=== PATIENT | male | born 2000 | race Asian ===

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

== ENCOUNTER → 2021-05-29 | Outpatient (CLI) | payer BC, OTHER ==
[2021-05-29 14:17] LABS: HGB 16.6 g/dL (13.0-17.0); MCH 31.1 pg (27.0-32.0); MCHC 32.5 g/dL (32.0-37.0); MCV 95.5 fL (80.0-97.0); Mean Platelet Volume 10.7 fL (9.5-12.2); Platelet Count 231 X 10*3/uL (140-440); RBC 5.34 X 10*6/uL (4.40-5.60); RDW 12.3 % (11.5-14.5); WBC 8.95 X 10*3/uL (4.50-10.00)
[2021-05-29 15:52] LABS: Follicle Stimulating Hormone 3.4 mIU/mL; Luteinizing Hormone 4.8 mIU/mL; Prolactin 10.6 ng/mL (2.100-17.700); T4, Free (Free Thyroxine) 1.08 ng/dL (0.830-1.430)
[2021-05-29 16:02] LABS: Thyroid Peroxidase Antibodies <9.0 U/mL (0.0-33.0)
== END | disposition home or self-care (01) ==
LOC: LABWHC1 10:13
PROVIDERS: ATTEND Internal Medicine Endocrinology, Diabetes & Metabolism
DX: Q89.2 Congenital malformations of other endocrine glands (principal)
CPT/HCPCS: 36415; 82024; 82533; 83001; 83002; 84146; 84305; 84403; 84439; 84443; 84480; 85027; 86376

== ENCOUNTER → 2021-11-08 | Outpatient (CLI) | payer BC, OTHER ==
[2021-11-08 23:29] LABS: T4, Free (Free Thyroxine) 0.87 ng/dL (0.830-1.430)
== END | disposition home or self-care (01) ==
LOC: LABWHC1 09:41
PROVIDERS: ATTEND Internal Medicine Endocrinology, Diabetes & Metabolism
DX: Q89.2 Congenital malformations of other endocrine glands (principal)
CPT/HCPCS: 36415; 84439; 84443; 84480

== ENCOUNTER 2023-06-19 19:06 | Emergency (ER) | payer BC, OTHER ==
--- NOTE | 2023-06-19 20:34 | ED ---
General Adult HPI - General Source: RN notes reviewed <Katalina Rivero - Last Filed: 06/19/23 20:33> <Tim Suh - Last Filed: 06/20/23 02:09> - General Stated complaint: Fever Time Seen by Provider: 06/19/23 20:33 - History of Present Illness Initial comments: 22-year-old male presents the emergency department with a chief complaint of fever. She reports fever on and off for the last day and half. Mother and father been giving Tylenol and Motrin at home. (Katalina Rivero) 22-year-old male presenting with chief complaint of fever. Mother reports a fever that started yesterday. They have been alternating Motrin and Tylenol. Patient denies any other symptoms. No headache, neck pain, ear pain, sinus pressure, cough, sore throat, congestion, shortness of breath, chest pain, abdominal pain, nausea, vomiting, diarrhea. (Tim Suh) - Related Data Allergies Allergy/AdvReac Type Severity Reaction Status Date / Time amoxicillin Allergy Unknown Verified 06/19/23 20:29 Review of Systems ROS Other: All systems not noted in ROS Statement are negative. <Katalina Rivero - Last Filed: 06/19/23 20:33> ROS Other: All systems not noted in ROS Statement are negative. <Tim Suh - Last Filed: 06/20/23 02:09> ROS Statement: Those systems with pertinent positive or pertinent negative responses have been documented in the HPI. General Exam <Katalina Rivero - Last Filed: 06/19/23 20:33> Limitations: no limitations General appearance: alert, in no apparent distress Head exam: Present: atraumatic, normocephalic Eye exam: Present: normal appearance ENT exam: Present: normal exam, normal oropharynx, mucous membranes moist Neck exam: Present: normal inspection. Absent: meningismus Respiratory exam: Present: normal lung sounds bilaterally. Absent: respiratory distress, wheezes, rales, rhonchi, stridor Cardiovascular Exam: Present: regular rate, normal rhythm, normal heart sounds. Absent: systolic murmur, diastolic murmur, rubs, gallop, clicks Neurological exam: Present: alert, oriented X3 Psychiatric exam: Present: normal affect, normal mood Skin exam: Present: warm, dry <Tim Suh - Last Filed: 06/20/23 02:09> - General Exam Comments Initial Comments: Visual Physical Exam Vital signs reviewed General: Well-appearing, nontoxic, no acute distress. Head: Normocephalic, atraumatic Eyes: PERRLA, EOMI ENT: Airway patent Chest: Nonlabored breathing Skin: No visual rash, normal skin tone Neuro: Alert and oriented 3 Musculoskeletal: No gross abnormalities (Katalina Rivero) Course Vital Signs 06/19/23 06/19/23 20:29 22:33 Temperature 99.1 F Pulse Rate 95 83 Respiratory 18 16 Rate Blood Pressure 111/75 116/75 O2 Sat by Pulse 98 97 Oximetry Medical Decision Making <Katalina Rivero - Last Filed: 06/19/23 20:33> <Tim Suh - Last Filed: 06/20/23 02:09> - Medical Decision Making I performed the quick note portion of this exam, verbal signature Katalina Rivero PA-C (Katalina Rivero) Was pt. sent in by a medical professional or institution ([facility], [facility], urgent care, hospital, or penitentiary...) When possible be specific @ -No Did you speak to anyone other than the patient for history (EMS, parent, family, police, friend...)? What history was obtained from this source @ -History supplemented by parents Did you review nursing and triage notes (agree or disagree)? Why? @ -I reviewed and agree with nursing and triage notes Were old charts reviewed (outside hosp., previous admission, EMS record, old EKG, old radiological studies, urgent care reports/EKG's, penitentiary records)? Report findings @ -No old charts were reviewed Differential Diagnosis (chest pain, altered mental status, abdominal pain women, abdominal pain men, vaginal bleeding, weakness, fever, dyspnea, syncope, headache, dizziness, GI bleed, back pain, seizure, CVA, palpatations, mental health, musculoskeletal)? @ - MDM Differential Fever: Pneumonia, viral URI, endocarditis, myocarditis, pericarditis, otitis, sinusitis, peritonsillar Abscess, retropharyngeal Abscess, epiglottitis, peritonitis, appendicitis, Ashley cystitis, diverticulitis, hepatitis, colitis, UTI, PID, TOA, pyelonephritis, prostatitis, epididymitis, meningitis, enc ephalitis, pulmonary embolism, CVA, thyroid storm, pancreatitis, adrenal crisis, cavernous sinus thrombosis this is not meant to be an all-inclusive list. EKG interpreted by me (3pts min.). @ -As above X-rays interpreted by me (1pt min.). @ -None done CT interpreted by me (1pt min.). @ -None done U/S interpreted by me (1pt. min.). @ -None done What testing was considered but not performed or refused? (CT, X-rays, U/S, labs )? Why? @ -None What meds were considered but not given or refused? Why? @ -None Did you discuss the management of the patient with other professionals (professionals i.e. , PA, [employer], lab, RT, psych nurse, high school social studies tutor, parking manager, teacher, first officer and flight instructor, bilingual case manager)? Give summary @ -No Was smoking cessation discussed for >3mins.? @ -No Was critical care preformed (if so, how long)? @ -No Were there social determinants of health that impacted care today? How? (Homelessness, low income, unemployed, alcoholism, drug addiction, transportation, low edu. Level, literacy, decrease access to med. care, care home, rehab)? @ -No Was there de-escalation of care discussed even if they declined (Discuss DNR or withdrawal of care, Hospice)? DNR status @ -No What co-morbidities impacted this encounter? (DM, HTN, Smoking, COPD, CAD, Cancer, CVA, ARF, Chemo, Hep., AIDS, mental health diagnosis, sleep apnea, morbid obesity)? @ -None Was patient admitted / discharged? Hospital course, mention meds given and route, prescriptions, significant lab abnormalities, going to OR and other pertinent info. @ -22-year-old male presenting with chief complaint of fever ongoing for the last and a half. Patient has no other symptoms. Heart and lungs are clear to auscultation, normal HEENT exam. No meningismus. He is negative for influenza, RSV, Covid, group A strep. Patient and parents are educated on today's findings and supportive management at home. Follow-up with PCP. Report back to ER with any new or worsening symptoms. Discussed return parameters and answered all questions. Patient conveyed verbal understanding and agreed to the plan. I discussed this case in detail with my attending Dr. Lutz Undiagnosed new problem with uncertain prognosis? @ -No Drug Therapy requiring intensive monitoring for toxicity (Heparin, Nitro, Insulin, Cardizem)? @ -No Were any procedures done? @ -No Diagnosis/symptom? @ -Fever Acute, or Chronic, or Acute on Chronic? @ -Acute Uncomplicated (without systemic symptoms) or Complicated (systemic symptoms)? @ -Uncomplicated Side effects of treatment? @ -No Exacerbation, Progression, or Severe Exacerbation? @ -No Poses a threat to life or bodily function? How? (Chest pain, USA, DC, pneumonia, PE, COPD, DKA, ARF, appy, cholecystitis, CVA, Diverticulitis, Homicidal, Suicidal, threat to staff... and all critical care pts) @ -Low likelihood (Tim Suh) - Lab Data Lab Results 06/19/23 06/19/23 Range/Units 20:37 20:37 Influenza Type A (PCR) Not Detected (Not Detectd) Influenza Type B (PCR) Not Detected (Not Detectd) RSV (PCR) Not Detected (Not Detectd) SARS-CoV-2 (PCR) Not Detected (Not Detectd) Group A Strep (PCR) NOT DETECTED (Not Detectd) Disposition <Katalina Rivero - Last Filed: 06/19/23 20:33> Is patient prescribed a controlled substance at d/c from ED?: No Time of Disposition: 22:18 <Tim Suh - Last Filed: 06/20/23 02:09> Clinical Impression: Fever Disposition: HOME SELF-CARE Condition: Good Instructions (If sedation given, give patient instructions): Fever in Adults (ED) Additional Instructions: Follow-up with PCP. Report back to ER with any new or worsening symptoms. Continue alternating Motrin and Tylenol. Referrals: Vicky Chapin MD [Primary Care Provider] - 1-2 days
[2023-06-19 20:49] VITALS: TEMP 99.1
[2023-06-19 22:44] VITALS: BP 116/75; PULSE 83; RESP 16
== END 2023-06-19 22:31 | disposition home or self-care (01) ==
LOC: EC 19:06
DX: R50.9 Fever, unspecified (principal); Z20.822 Contact with and (suspected) exposure to COVID-19
CPT/HCPCS: 87636; 87651; 99283